=== PATIENT | male | born 1950 ===

== ENCOUNTER → 2022-11-24 09:03 | Outpatient (CLI) | payer MEDICARE, BC, SELFPAY ==
--- NOTE | ~2022-11-24 | MR_ITS ---
MRI of the left shoulder Technique: Axial proton-density fat-sat images, coronal proton density fat-sat and T2 fat-sat images, and sagittal T1-weighted and T2 fat-sat images were acquired. Clinical History: Pain Findings: There is severe AC joint degenerative change. There is high riding humeral head with narrow ing of the humeral acromial interval. Coracoclavicular, coracoacromial, and coracohumeral ligaments a re probably intact. There are complete, full-thickness tears of the supraspinatus and infraspinatus tendons, which are pr obably retracted to approximately the level of the glenoid. Fluid-filled gap measures approximately 4 .3 x 4.7 cm in extent. Subscapularis tendon demonstrates severe tendinosis with probable focal low-gr beata interstitial tear. Tendon of the long head of the biceps is intact. There is probable degenerative tearing of the anterior labrum. Small inferomedial humeral head osteophyte present. There is extensive moderate to high-grade chondro malacia the humeral head. Inferior glenohumeral ligament is intact. Minimal glenohumeral joint effusi on is present, with fluid passing through the rotator cuff defect into the subacromial/subdeltoid bur sa. There is probable mild to moderate fatty atrophy of the supraspinatus and infraspinatus muscle be llies. Impression: Complete, full-thickness tears of the supraspinatus and infraspinatus tendons, as detailed above. Ass ociated probable mild to moderate fatty atrophy of the supraspinatus and infraspinatus muscle bellies . Severe AC joint degenerative change, with high riding humeral head. Mild to moderate osteoarthritic change of the glenohumeral joint. Suspected low-grade interstitial tear of the subscapularis tendon. Probable degenerative tearing of the anterior labrum. Reviewed, dictated and finalized at location M. Impression: Complete, full-thickness tears of the supraspinatus and infraspinatus tendons, as detailed above. Associated probable mild to moderate fatty atrophy of the torres praspinatus and infraspinatus muscle bellies. Severe AC joint degenerative change, with high riding humeral head. Mild to moderate osteoarthritic change of the glenohumeral joint. Suspected low-grade interstitial tear of the subscapularis tendon. Probable degenerative tearing of the anterior labrum.
== END ==
PROVIDERS: PCP Orthopaedic Surgery; Visit Provider Orthopaedic Surgery
DX: M19.012 Primary osteoarthritis, left shoulder (principal)
CPT/HCPCS: 73221